=== PATIENT | male | born 1980 | race African-American/Black ===

== ENCOUNTER 2017-10-30 20:14 | Emergency (ER) | payer SELFPAY ==
[2017-10-30 20:43] LABS: #Monocytes 0.8 thou/uL (0.11-0.59); #Neutrophils 10.7 thou/uL (1.40-6.50); %Basophils 0.2 % (0.0-1.0); %Eosinophils 0.2 % (0.0-10.0); %Monocytes 5.6 % (0.0-10.0); Hemoglobin 16.6 g/dL (14.0-18.0); Mean Corpuscular Volume 88.7 fL (78.0-98.0); Mean Platelet Volume 7.2 fL (7.4-10.4); Platelet Count 291 thou/uL (130-400); RBC Distribution Width 12.8 % (11.5-14.5); Red Blood Cell (RBC) Count 5.35 mill/uL (4.70-6.10); White Blood Cell (WBC) Count 13.6 thou/uL (4.8-10.8)
[2017-10-30 21:00] LABS: Acetaminophen Less than 6.0 mcg/mL (10.0-30.0); Alcohol Less than 10 mg/dL (Less than 10); Salicylate Less than 8.0 mg/dL (15.0-30.0)
[2017-10-30 21:01] LABS: ALT (SGPT) 44 U/L (8-55); AST (SGOT) 25 U/L (5-34); Albumin 4.7 g/dL (3.5-5.0); Alkaline Phosphatase 83 U/L (40-150); Anion Gap 15 mmol/L (10-20); BUN (Urea Nitrogen) 13 mg/dL (8.9-20.6); Bilirubin, Total 0.6 mg/dL (0.2-1.2); CK (CPK) 254 U/L (30-200); Calc. Creatinine Clearance 0 mL/min (70-130); Calcium 10.2 mg/dL (7.8-10.44); Carbon Dioxide 22 mmol/L (22-29); Chloride 109 mmol/L (98-107); Estimated GFR-MDRD 45; Globulin 3.4 g/dL (2.4-3.5); Glucose 87 mg/dL (70-105); Potassium 3.9 mmol/L (3.5-5.1); Protein, Total 8.1 g/dL (6.0-8.3); Sodium 142 mmol/L (136-145)
--- NOTE | 2017-10-30 21:04 | CT ---
CT HEAD WITHOUT CONTRAST: 10/30/17 HISTORY: Mental status change. Found unresponsive. The ventricles have normal size and position. There is no evidence of intracranial mass, hemorrhage, infarct, or other acute process. The sinuses and mastoids are well aerated. IMPRESSION: No acute process identified. POS: [facility]
[2017-10-30 21:07] LABS: CKMB 1.4 ng/mL (0-6.6); Troponin I 0.024 ng/mL (< 0.028)
--- NOTE | 2017-10-30 21:07 | RAD ---
PORTABLE CHEST: 10/30/17 HISTORY: Mental status change. The lungs appear clear. No infiltrate seen. The heart and mediastinum unremarkable. IMPRESSION: No acute abnormality. POS: [facility]
[2017-10-30 21:23] LABS: Free T4 (Free Thyroxine) 0.93 ng/dL (0.70-1.48)
[2017-10-30 21:29] LABS: Thyroid Stimulating Hormone 0.6364 uIU/mL (0.35-4.94)
[2017-10-30 22:15] LABS: Bilirubin Negative (Negative); Blood, Urine Negative (Negative); Clarity CLEAR (Clear); Glucose, Urine (Dipstick) Negative (Negative); Leukocyte Negative (Negative); Nitrite Negative (Negative); Protein, Urine (Dipstick) Negative (Neg-Trace); Specific Gravity, Urine 1.016 (1.002-1.036); pH, Urine 6.5 (5.0-9.0)
[2017-10-30 22:24] LABS: Amphetamine Not Detected (NotDetected); Benzodiazepine Screen Not Detected (NotDetected); Cocaine Metabolite Screen Not Detected (NotDetected); Medtox Reader # READER 1; Methamphetamine Not Detected (NotDetected); Opiate Screen Not Detected (NotDetected); Phencyclidine (PCP) Detected (NotDetected); THC/Cannabinoid Screen Not Detected (NotDetected)
[2017-10-30 22:25] LABS: Barbiturates Screen Not Detected (NotDetected); Medtox Control Line Valid? VALID (VALID); Methadone Not Detected (NotDetected); Oxycodone Screen Not Detected (NotDetected); Tricyclic Screen Not Detected (NotDetected)
== END 2017-10-30 23:23 | disposition home or self-care (01) ==
LOC: EDBD 20:14 → ERS 20:14
DX: E86.0 Dehydration (principal); N17.9 Acute kidney failure, unspecified; F16.10 Hallucinogen abuse, uncomplicated; Z79.899 Other long term (current) drug therapy
CPT/HCPCS: 36415; 70450; 71045; 80053; 80306; 80307; 81003; 82550; 82553; 84439; 84443; 84484; 85025; 93005; 96360

== ENCOUNTER 2017-11-01 22:27 | Emergency (ER) | payer SELFPAY | END 2017-11-02 01:08 | disposition home or self-care (01) | LOC: ERS 22:27 | DX: F16.10 Hallucinogen abuse, uncomplicated (principal); Z71.6 Tobacco abuse counseling | CPT/HCPCS: 96360; 96361; 99406 ==

== ENCOUNTER 2017-11-04 09:16 | Emergency (ER) | payer SELFPAY | END 2017-11-04 09:35 | disposition home or self-care (01) | LOC: ERS 09:16 | DX: S00.81XA Abrasion of other part of head, initial encounter (principal); F16.129 Hallucinogen abuse with intoxication, unspecified; Y04.8XXA Assault by other bodily force, initial encounter | CPT/HCPCS: 36416; 99283 ==